=== PATIENT | male | born 1980 | race Caucasian/White ===

== ENCOUNTER 2022-07-13 20:18 | Emergency (ER) | payer SELFPAY ==
[~2022-07-13] VITALS: Ht 170.2 cm; Wt 86.4 kg
[2022-07-13 20:22] VITALS: BP 144/80; TEMP 96.9
[2022-07-13] MEDS ORDERED: NORCO 325 MG-51 TAB PO (22:00)
[2022-07-13 22:22] VITALS: PULSE 98
== END 2022-07-13 22:22 | disposition home or self-care (01) ==
LOC: COL.ER 20:18
DX: M25.532 Pain in left wrist (principal); F17.210 Nicotine dependence, cigarettes, uncomplicated; Z28.310 Unvaccinated for COVID-19
CPT/HCPCS: J1885

== ENCOUNTER 2023-12-31 15:02 | Emergency (ER) | payer SELFPAY ==
[~2023-12-31] VITALS: Ht 165.1 cm; Wt 86.4 kg
[~2023-12-31 15:02] MED LIST: NORCO 325 MG-51 TAB PO
[2023-12-31 15:08] VITALS: TEMP 97.5
[2023-12-31] MEDS ORDERED: FAMVIR 500500 MG/TAB PO (17:26)
[2023-12-31] MEDS ORDERED: PREDNISONE20 MG PO (17:26)
[2023-12-31 17:50] VITALS: BP 137/95; PULSE 100
== END 2023-12-31 17:50 | disposition home or self-care (01) ==
LOC: COL.ER 15:02
DX: G51.0 Bell's palsy (principal); F17.210 Nicotine dependence, cigarettes, uncomplicated

== ENCOUNTER 2024-04-30 16:58 | Emergency (ER) | payer SELFPAY ==
[~2024-04-30] VITALS: Ht 162.6 cm; Wt 86.4 kg
[~2024-04-30 16:58] MED LIST changes: +FAMVIR 500500 MG/TAB PO; +PREDNISONE20 MG PO
[2024-04-30] MEDS ORDERED: BACTRIM DS 8001 TAB PO (19:09)
[2024-04-30 19:13] VITALS: BP 144/92; PULSE 92; TEMP 98.4
[2024-04-30] MEDS ORDERED: Sulfamethoxazole/Trimethoprim 800-160 MG TAB PO ONE (19:15)
== END 2024-04-30 19:22 | disposition home or self-care (01) ==
LOC: COL.ER 16:58
DX: L02.01 Cutaneous abscess of face (principal); F17.290 Nicotine dependence, other tobacco product, uncomplicated